=== PATIENT | male | born 1955 | race Caucasian/White ===

== ENCOUNTER 2017-08-04 20:07 | Emergency (ER) | payer OTHER ==
[~2017-08-04 20:07] MED LIST: CYCL-36 PO; ECOT325T PO; LISI-363 PO; NAPR500 PO
== END 2017-08-04 21:58 | disposition left against medical advice (07) ==
LOC: PHED 20:07
DX: R11.2 Nausea with vomiting, unspecified (principal)
CPT/HCPCS: 99281